=== PATIENT | female | born 1975 | race Caucasian/White ===

== ENCOUNTER 2017-07-02 23:09 | Emergency (ER) | payer OTHER ==
[2017-07-02] MEDS ORDERED: traMADol HCl 50 MG TAB ONE (23:33)
[2017-07-02] MEDS ORDERED: AMOXicillin 250 MG CAP ONE (23:34)
[2017-07-02] MEDS ORDERED: Bacitracin Zinc 1 Packet ONE (23:34)
[2017-07-02] MEDS ORDERED: Ibuprofen 800 MG TAB ONE (23:34)
== END 2017-07-02 23:52 | disposition home or self-care (01) ==
LOC: BURERS 23:09
DX: S61.452A Open bite of left hand, initial encounter (principal); S51.852A Open bite of left forearm, initial encounter; S81.852A Open bite, left lower leg, initial encounter; W54.0XXA Bitten by dog, initial encounter; F17.210 Nicotine dependence, cigarettes, uncomplicated
CPT/HCPCS: 90471